=== PATIENT | male | born 1970 | race Caucasian/White ===

== ENCOUNTER 2016-07-04 14:42 | Emergency (ER) | payer BC, OTHER ==
[~2016-07-04] VITALS: Ht 182.9 cm; Wt 70.0 kg
[2016-07-04 14:54] VITALS: TEMP 36.6; Ht 182.9 cm; Wt 70.0 kg
[2016-07-04] MEDS ORDERED: KETOROLAC TROMETHAMINE 60 MG/2 ML VIAL IM STA (15:02)
--- NOTE | 2016-07-04 15:09 | EMERGENCY ROOM VISIT NOTE ---
History First contact with patient: 14:57 Chief Complaint: SHOULDER DISLOCATION Stated Complaint: DISLOCATED SHOULDER History of Present Illness The patient is a 46 year old male who presents to the Emergency Room with complaints of right shoulder pain. The patient fell while skiing and believes he dislocated his right shoulder. He states that this is happened in the past. He denies striking his head or having loss of consciousness. He denies numbness or tingling. He rates his discomfort an 8/10. He denies any pain in his chest or trouble breathing. He denies any other injury. Review of Systems A 10 system review of systems was completed with positives and pertinent negatives listed in the HPI. Past Medical/Surgical History Patient denies Social History Smoking Status: Never Smoker Housing Status: lives with family Occupation Status: employed Current/Historical Medications Scheduled Psyllium (Metamucil), 1 TSP PO BID Ranitidine (Zantac), 150 MG PO DAILY Allergies Coded Allergies: No Known Allergies (Unverified , 07/04/16) Physical Exam Vital Signs Date Time Temp Pulse Resp B/P Pulse Ox O2 Delivery O2 Flow Rate FiO2 07/04/16 16:30 80 117/77 96 07/04/16 14:54 36.6 130 20 123/83 97 Room Air Physical Exam VITALS: Vitals are noted on the nurse's note and reviewed by myself. Vital signs stable. GENERAL: This is a 46-year-old maleno acute distress, nondiaphoretic, well- developed well-nourished. SKIN: The skin was without rashes, erythema, edema, or bruising. There is no tenting of the skin. Capillary reflex less than 2 seconds. HEAD: Normocephalic atraumatic. EARS: The external ears are normal in appearance. EYES: Pupils equal round and reactive to light and accommodation. Conjunctivae without injection, sclerae without icterus. Extraocular movements intact. NOSE: Patent, turbinates without inflammation or discharge. MOUTH: Mucous membranes moist. Tonsils are not enlarged. Pharynx without erythema or exudate. Uvula midline. Airway patent. Tongue does not deviate. NECK: Supple without nuchal rigidity. No lymphadenopathy. No thyromegaly. Cervical spine is nontender. No JVD. HEART: Regular rate and rhythm without murmurs gallops or rubs. LUNGS: Clear to auscultation bilaterally without wheezes, rales or rhonchi. No retractions or accessory muscle use. MUSCULOSKELETAL: The patient is holding his right arm and extension and is laying supine on the bed. It is quite difficult to assess his shoulder. He cannot move the shoulder secondary to pain. Normal gait. Strength 5/5 throughout. NEURO: Patient was alert and oriented to person place and time. Normal sensation to light and sharp touch. No focal neurological deficits. Medical Decision & Procedures ER Provider Diagnostic Interpretation: RIGHT SHOULDER 3 VIEWS HISTORY: right shoulder dislocation Right COMPARISON: None. FINDINGS: Mild inferior subluxation of the humeral head in relation to the glenoid without dislocation or fracture. The right clavicle is intact. Soft tissues are unremarkable. No radiopaque foreign bodies. IMPRESSION: Mild inferior subluxation of the right humeral head in relation to the glenoid without definite fracture or dislocation. Of note, the patient's arm is in extension throughout the examination. RIGHT SHOULDER 2 VIEWS HISTORY: Right shoulder dislocation. post reduction Right COMPARISON: None. FINDINGS: The alignment appears anatomic. There is no acute fracture dislocation at this time. The right clavicle is intact. Soft tissues are unremarkable. No radiopaque foreign bodies. IMPRESSION: No fracture or dislocation within the right shoulder status post reduction. Medications Administered Medications (Trade) Dose Ordered Sig/Miguel Route Start Time Stop Time Status Last Admin Dose Admin Ketorolac Tromethamine (Toradol Inj) 60 mg NOW STAT IM 07/04/16 15:02 07/04/16 15:04 DC 07/04/16 15:05 60 MG Procedure A shoulder reduction was performed. The patient was placed in a prone position on the bed. His right arm was flexed at the elbow and with gentle traction the shoulder was easily reduced. An arm sling was placed. Neurovascular status was intact. ED Course The patient was seen and examined. Previous visits were reviewed. Initial x- ray was obtained and suggested anterior dislocation but no obvious fracture. The right shoulder was reduced easily as above. The patient had been given 60 mg IM Toradol. He declined any stronger pain medication. The patient was placed in a sling. Post reduction films were obtained. The patient should follow up with orthopedics for further evaluation and management. Medical Decision The differential diagnosis includes extremity fracture, before meals separation , shoulder dislocation, among others Impression Primary Impression: Shoulder dislocation Departure Information Dispostion Home / Self-Care Condition GOOD Referrals No Doctor, Assigned (PCP) Walter, López A., DO Patient Instructions ED Dislocation Shoulder Redu, [facility] Additional Instructions Contact orthopedics tomorrow to schedule a follow-up appointment for further evaluation and management Wear the sling until seen by orthopedics Ibuprofen 600 mg every 6-8 hours for moderate pain Return if any worsening symptoms, pain, numbness, tingling, weakness Problem Qualifiers Primary Impression: Shoulder dislocation Encounter type: initial encounter Laterality: right Qualified Codes: S43.004A - Unspecified dislocation of right shoulder joint, initial encounter
[2016-07-04] MEDS ORDERED: ZNTT/150 PO (15:34)
[2016-07-04] MEDS ORDERED: PSYL48.59 PO (15:35)
--- NOTE | 2016-07-04 16:19 | DIAGNOSTIC IMAGING REPORT ---
RIGHT SHOULDER 3 VIEWS HISTORY: right shoulder dislocation Right COMPARISON: None. FINDINGS: Mild inferior subluxation of the humeral head in relation to the glenoid without dislocation or fracture. The right clavicle is intact. Soft tissues are unremarkable. No radiopaque foreign bodies. IMPRESSION: Mild inferior subluxation of the right humeral head in relation to the glenoid without definite fracture or dislocation. Of note, the patient's arm is in extension throughout the examination. Electronically signed by: Bob Matute M.D. 07/04/2016 4:18 PM Dictated Date/Time: 07/04/2016 4:17 PM
--- NOTE | 2016-07-04 16:21 | DIAGNOSTIC IMAGING REPORT ---
RIGHT SHOULDER 2 VIEWS HISTORY: Right shoulder dislocation. post reduction Right COMPARISON: None. FINDINGS: The alignment appears anatomic. There is no acute fracture dislocation at this time. The right clavicle is intact. Soft tissues are unremarkable. No radiopaque foreign bodies. IMPRESSION: No fracture or dislocation within the right shoulder status post reduction. Electronically signed by: Bob Matute M.D. 07/04/2016 4:20 PM Dictated Date/Time: 07/04/2016 4:18 PM
[2016-07-04 16:30] VITALS: BP 117/77; PULSE 80; O2SAT 96
== END 2016-07-04 16:30 | disposition home or self-care (01) ==
LOC: C.EDB 14:43 → C.EDA 16:30
DX: S43.004A Unspecified dislocation of right shoulder joint, initial encounter (principal); Z79.899 Other long term (current) drug therapy; V00.321A Fall from snow-skis, initial encounter; Y93.23 Activity, snow (alpine) (downhill) skiing, snowboarding, sledding, tobogganing and snow tubing; Y99.8 Other external cause status

== ENCOUNTER 2017-07-27 06:05 | Day surgery (SDC) | payer OTHER ==
[2017-07-12 08:11] VITALS: Ht 185.4 cm; Wt 71.5 kg
--- NOTE | 2017-07-12 08:36 | PAT Medication Instructions ---
Service Date Jul 12, 2017. Current Home Medication List Cholecalciferol (Vitamin D3), 5,000 UNITS PO QAM Gabapentin (Neurontin), 400 MG PO QID Psyllium (Metamucil), 1 TSP PO BID Ranitidine (Zantac), 150 MG PO QPM [Sulindac], 1 TAB PO QAM Medication Instructions For Your Scheduled Surgery - Hold the following medications 7 days prior to surgery: [Sulindac], 1 TAB PO QAM - Hold the following medications the morning of surgery: Cholecalciferol (Vitamin D3), 5,000 UNITS PO QAM Psyllium (Metamucil), 1 TSP PO BID - Take the following medications the morning of surgery with a sip of water: Gabapentin (Neurontin), 400 MG PO QID - Take the following medications as scheduled the night before surgery: Ranitidine (Zantac), 150 MG PO QPM Gabapentin (Neurontin), 400 MG PO QID Psyllium (Metamucil), 1 TSP PO BID If you have any questions please call us at [phone] or [phone] or [phone]
--- NOTE | 2017-07-12 09:12 | DIAGNOSTIC IMAGING REPORT ---
CHEST 2 VIEWS ROUTINE CLINICAL HISTORY: PAT preoperative evaluation COMPARISON STUDY: No previous studies for comparison. FINDINGS: The bones soft tissues and hemidiaphragms are normal. The cardiomediastinal silhouette is normal. The lungs are clear. The pulmonary vasculature is normal. IMPRESSION: Negative chest. The above report was generated using voice recognition software. It may contain grammatical, syntax or spelling errors. Electronically signed by: Jay Dennison M.D. 07/12/2017 9:11 AM Dictated Date/Time: 07/12/2017 9:09 AM
[2017-07-12 09:28] LABS: BASO % 0.7 %; BASO ABS # 0.04 K/uL (0-0.2); EOS % 2.2 %; EOS ABS # 0.13 K/uL (0-0.5); HEMATOCRIT 39.9 % (42-52); HEMOGLOBIN 14.2 g/dL (14.0-18.0); IG# 0.01 K/uL (0.00-0.02); LYMPH % 36.5 %; LYMPH ABS # 2.13 K/uL (1.2-3.4); MEAN CELL VOLUME 85.8 fL (80-100); MEAN CORPUSCULAR HEMOGLOBIN 30.5 pg (25-34); MEAN CORPUSCULAR HGB CONC 35.6 g/dl (32-36); MEAN PLATELET VOLUME 9.9 fL (7.4-10.4); MONO % 7.2 %; MONO ABS # 0.42 K/uL (0.11-0.59); NEUT % 53.2 %; NEUT ABS # 3.11 K/uL (1.4-6.5); PLATELET COUNT 214 K/uL (130-400); RED CELL DISTRIBUTION WIDTH CV 13.1 % (11.5-14.5); WHITE BLOOD COUNT 5.84 K/uL (4.8-10.8)
[2017-07-12 09:36] LABS: CALCIUM 8.9 mg/dl (8.5-10.1); CREATININE 0.8 mg/dl (0.60-1.40); POTASSIUM 4.2 mmol/L (3.5-5.1)
[~2017-07-27] VITALS: Ht 185.4 cm; Wt 71.5 kg
[~2017-07-27 06:05] MED LIST: CEFAZOLIN 1000MG IV PUSH 7.5 ML IV SCH; CHOL1000 PO; GABA-1220 PO; LACTATED RINGER'S 1000ML 1,000 ML IV SCH; PSYL48.59 PO; RANI150T85 PO; SULINDAC PO
[2017-07-27 06:15] VITALS: BP 123/81; PULSE 74; TEMP 36.5; O2SAT 99
[2017-07-27] MEDS ORDERED: MIDAZOLAM HCL 1 MG/ML 2ML VIAL ONE (06:39)
[2017-07-27] MEDS ORDERED: FENTANYL CITRATE INJ 50 MCG/1 ML 2 ML VIAL ONE ×2 (06:39→08:01)
[2017-07-27] MEDS ORDERED: BACITRACIN 50000 UNIT VIAL ONE (06:53)
[2017-07-27] MEDS ORDERED: BUPIVACAINE/EPINEPHRINE 0.5% MPF 1:200,000 30 ML VIAL ONE (06:53)
[2017-07-27] MEDS ORDERED: ATROPINE SULFATE 0.1 MG/ML 5ML SYR IV PRN (07:00)
[2017-07-27] MEDS ORDERED: EpHEDrine SULFATE INJ 50 MG/ML AMP IV PRN (07:00)
[2017-07-27] MEDS ORDERED: ONDANSETRON INJ 2 MG/ML 2 ML VIAL IV PRN (07:00)
--- NOTE | 2017-07-27 07:37 | History & Physical Bridge Note ---
H&P Re-Evaluation Bridge Note: I have examined the patient, reviewed the History & Physical and in the interval since the performance of the History & Physical I have noted the following changes of clinical significance: No changes noted
--- NOTE | 2017-07-27 07:37 | History and Physical ---
History & Physical Date Jul 27, 2017. Chief Complaint Back and leg pain History of Present Illness The patient is a 47 year old male with complaints of back and leg pain Additional History Hepatic Disease: No Endocrine Disorder: No Kidney Disease: No Hypertension: No Heart Disease: No Bleeding Tendencies: No Infectious Diseases: No Allergies Coded Allergies: No Known Allergies (Unverified , 07/27/17) Home Medications Scheduled Cholecalciferol (Vitamin D3), 5,000 UNITS PO QAM Gabapentin (Neurontin), 400 MG PO QID Psyllium (Metamucil), 1 TSP PO BID Ranitidine (Zantac), 150 MG PO QPM [Sulindac], 1 TAB PO QAM Physical Examination Skin: warm/dry, no rash Eyes: normal inspection, EOMI, sclerae normal ENT: normal ENT inspection, pharynx normal Head: normocephalic, atraumatic Neck: supple, no adenopathy, trachea midline Respiratory/Chest: lungs clear, normal breath sounds, no respiratory distress Cardiovascular: regular rate, rhythm, no edema, no murmur Abdomen / GI: normal bowel sounds, non tender Back: normal inspection Extremities: normal inspection, normal range of motion Neurologic/Psych: no motor/sensory deficits, alert, normal reflexes, oriented x 3 Diagnosis Herniated nucleus pulposus 45 Plan of Treatment Microdiscectomy L4 5 right side
[2017-07-27] MEDS ORDERED: HYDROmorphone INJ 2 MG/ML SYR/VIAL ONE (08:01)
[2017-07-27] MEDS ORDERED: ONDANSETRON INJ 2 MG/ML 2 ML VIAL ONE (08:23)
[2017-07-27] MEDS ORDERED: NEOSTIGMINE METHYLSULFATE 1 MG/ML 10ML VIAL ONE (08:23)
[2017-07-27] MEDS ORDERED: LIDOCAINE HCL 2% 2 ML VIAL (20MG/ML) ONE (08:23)
[2017-07-27] MEDS ORDERED: GLYCOPYRROLATE INJ 0.2 MG/ML VIAL ONE (08:23)
[2017-07-27] MEDS ORDERED: KETOROLAC TROMETHAMINE 30 MG/ML VIAL ONE (08:23)
[2017-07-27] MEDS ORDERED: PROPOFOL IV EMULSION 10 MG/ML 20 ML VIAL IV ONE (08:23)
[2017-07-27] MEDS ORDERED: DEXAMETHASONE SOD INJ 4 MG/ML VIAL ONE (08:23)
[2017-07-27] MEDS ORDERED: LARYING-O-JET KIT (LTA) ONE (08:34)
[2017-07-27] MEDS ORDERED: FLOSEAL HEMOSTATIC MATRIX 5ML TOP ONE (08:34)
--- NOTE | 2017-07-27 08:37 | [facility] Operative Report ---
Operative Report Operative Date Jul 27, 2017. Pre-Operative Diagnosis Herniated Nucleus Polposus L4-5 Post-Operative Diagnosis Herniated nucleus pulposus L4 5 Procedure(s) Performed Lumbar laminotomy L4 5 on the right with excision of herniated free fragment Surgeon Dr. Go Nursery Worker Surgeon(s) Brittanie Ruffin PA-C Estimated Blood Loss 10 mL Findings Herniated free fragment L4 5 on the right Description of Procedure Patient was met with preoperatively case discussed all questions addressed. After informed consent obtained patient was taken to the operative suite underwent intubation and placed in a prone position on the Surya table on top of the Ramses frame. All bony prominences were well-padded the eyes inspected to ensure no external pressure placed upon them. This point the lumbar spine was prepped and draped in normal sterile fashion. With the assistance of fluoroscopy identified the L4 5 disc space. A midline incision was created overlying's region. Sharp dissection with the assistance of Bovie cautery was performed down to and exposing the interlaminar space at L4 5 on the right. Self-retaining retractors placed. Then performed a small laminotomy excising lateral portion of the ligamentum flavum. A markedly compressed traversing L5 nerve root was noted. Was mobilized medially and 2 very large fragments of free disc material identified and removed. This created significant decompression of the root. The area was explored several times to ensure all loose fragments were addressed. Incision was then copious irrigated and closed with 1 Vicryl fascia 2-0 Vicryl subcutaneous tensely and 4-0 Monocryl for final skin closure. Steri-Strips sterile dressings placed. Patient awakened taken PACU stable condition. Please note Brittanie Maza was present at the entire procedure involved in patient positioning complex portions of the surgery and final skin closure. I attest to the content of the Intraoperative Record and any orders documented therein. Any exceptions are noted below.
[2017-07-27] MEDS ORDERED: OXYC-57 PO (08:38)
--- NOTE | 2017-07-27 08:39 | Discharge Instructions ---
Discharge Instructions Date of Service Jul 27, 2017. Admission Reason for Admission: Lumbar Spinal Stenosis L4-5 Discharge Discharge Diagnosis / Problem: herniated lumbar disk Discharge Goals Goal(s): Improve function Activity Recommendations Activity Limitations: per Instructions/Follow-up section . Instructions / Follow-Up Instructions / Follow-Up ACTIVITY RECOMMENDATIONS: SELF CARE INSTRUCTIONS AFTER A LAMINECTOMY 1. No prolonged sitting (less than 30 minutes for the first 3 weeks after surgery). 2. No bending, lifting more than 5 pounds, or twisting (roll like a log when turning in bed). 3. You may shower 3 days after surgery if no drainage from wound. Thoroughly dry wound. Do not soak in the tub. 4. Please walk as much as you can for exercise. Gradually increase the distance that you walk as your endurance increases. 5. You may drive in 7-10 days if you are comfortable and no longer requiring pain medications. SPECIAL CARE INSTRUCTIONS: VERY IMPORTANT TO READ AND REVIEW A. Your surgical incision has been closed with a cosmetic suture under the skin that will dissolve in about 6 weeks. In 14 days, you can use a pair of clean scissors and cut the suture that is left outside of the skin at the ends of your incision. B. Complications are uncommon, but please contact us if you have any signs or symptoms of: 1. wound infection (fever higher than 102.5 degrees F, redness, separation of wound, drainage, or increasing pain from the incision) 2. blood clots in legs (pain, swelling, redness and warmth in legs) 3. urinary tract infection (fever higher than 102.5 degrees, burning upon urination or increased frequency of urination) 4. nerve problems (inability to walk on your toes or heels, numbness, loss of bowel or bladder control) 5. any other symptoms that concern you. C. Please call the office at if you have any concerns or questions about your operation or recovery. MANAGING PAIN AFTER SPINAL SURGERY 1. Narcotic medication is intended for short-term use and will be provided for surgical pain. Surgical pain usually lasts for a period of 4-6 weeks. Narcotic medication includes Percocet, Vicodin, Darvocet, Tylenol #3 or Lortab. 2. Longer-term pain is more appropriately treated with non-narcotic medication such as Tylenol ES. 3. Muscle spasm is not appropriately treated with narcotics. Muscle relaxers such as Soma, Flexeril or Skelaxin can be used along with Tylenol ES. 4. Remember that we all live with some "aches and pains". This is not unusual or uncommon after an injury or as we get older. 5. We will provide appropriate medication within the normal guidelines of their prescribed use. We will also be very cautious and aware of potential abuse and extended duration of patients' medication needs. 6. Please allow 2-3 days to process refills. Prescriptions will not be mailed but must be picked up at the office. FOLLOW UP VISIT: Keep your scheduled follow-up appointment. Any questions, please call the office at . Current Hospital Diet Patient's current hospital diet: Discharge Diet Recommended Diet: Regular Diet Procedures Procedures Performed: Lumbar laminotomy L4 5 on the right with excision of herniated free fragment Pending Studies Studies pending at discharge: no Medical Emergencies . Who to Call and When: Medical Emergencies: If at any time you feel your situation is an emergency, please call 911 immediately. . Non-Emergent Contact Non-Emergency issues call your: Primary Care Provider . "Provider Documentation" section prepared by Judah Go. . VTE Core Measure Inpt VTE Proph given/why not?: Chandni Lino, SCD's
[2017-07-27] MEDS ORDERED: KETOROLAC TROMETHAMINE 30 MG/ML VIAL IV. PRN (08:45)
[2017-07-27] MEDS ORDERED: HYDROmorphone INJ 1 MG/ML SYR IV PRN (08:45)
[2017-07-27] MEDS ORDERED: OXYCODONE HCL IR 5 MG TAB (IMMEDIATE RELEASE) PO PRN (08:45)
[2017-07-27] MEDS ORDERED: ACETAMINOPHEN 325 MG TAB PO PRN (08:45)
[2017-07-27] MEDS: FENTANYL CITRATE INJ 50 MCG/1 ML 2 ML VIAL IV PRN ×2 (09:05→09:11)
[2017-07-27] MEDS ORDERED: HYDROmorphone INJ 2 MG/ML SYR/VIAL IV PRN (09:45)
--- NOTE | 2017-07-27 10:08 | Anesthesiology Progress Note ---
Anesthesia Post Op Note Date & Time Jul 27, 2017 at 10:08 Vital Signs Pain Intensity: 3 Vital Signs Past 12 Hours Date Time Temp Pulse Resp B/P (MAP) Pulse Ox O2 Delivery O2 Flow Rate FiO2 07/27/17 09:40 36.5 16 104/68 98 Room Air 10 07/27/17 09:25 36.5 54 16 104/68 98 Room Air 07/27/17 09:15 57 16 120/73 98 Oxymask 10 07/27/17 09:05 62 16 122/76 99 Oxymask 10 07/27/17 08:55 36.5 79 16 113/76 97 Oxymask 10 07/27/17 06:15 36.5 74 18 123/81 99 Room Air Notes Mental Status: alert / awake / arousable, participated in evaluation Pt Amnestic to Procedure: Yes Nausea / Vomiting: adequately controlled Pain: adequately controlled Airway Patency, RR, SpO2: stable & adequate BP & HR: stable & adequate Hydration State: stable & adequate Anesthetic Complications: no major complications apparent
[2017-07-27 10:40] VITALS: BP 129/82; PULSE 50; TEMP 36.4; O2SAT 98
--- NOTE | 2017-07-27 13:05 | DIAGNOSTIC IMAGING REPORT ---
SPINE ONE VIEW, ANY LEVEL CLINICAL HISTORY: 47 years-old Male presenting with L4-5 RT SIDE MICRODISCETOMY. TECHNIQUE: 1 fluoroscopic spot image(s) obtained as part of an intraoperative procedure. COMPARISON: None. FINDINGS/IMPRESSION: Surgical instruments project over the posterior aspect of L5 vertebral body. Normal anatomic alignment. Please see surgical report for further details. Fluoroscopy dosage (mGy): 1.74. Fluoroscopy time: 3.6 seconds. Number of fluoroscopic spot images: 1. Electronically signed by: Matt Infante M.D. 07/27/2017 1:03 PM Dictated Date/Time: 07/27/2017 1:03 PM
== END 2017-07-27 10:50 | disposition home or self-care (01) ==
LOC: C.ACU 06:05
PROVIDERS: ATTEND Orthopaedic Surgery Orthopaedic Surgery of the Spine
DX: M51.26 Other intervertebral disc displacement, lumbar region (principal); M48.061 Spinal stenosis, lumbar region without neurogenic claudication; K21.9 Gastro-esophageal reflux disease without esophagitis